=== PATIENT | male | born 1955 | race Caucasian/White ===

== ENCOUNTER → 2016-12-11 | Outpatient (CLI) | payer OTHER | END | disposition home or self-care (01) | LOC: CVU 08:58 | PROVIDERS: ATTEND Internal Medicine Cardiovascular Disease | DX: I10 Essential (primary) hypertension (principal) | CPT/HCPCS: 93306; 93975 ==

== ENCOUNTER 2020-02-11 09:43 | Day surgery (SDC) | payer OTHER ==
[2020-02-09 15:35] LABS: ALANINE AMINOTRANSFERASE 40 U/L (12-78); ALBUMIN 3.9 g/dL (3.4-5.0); ANION GAP 5 mmol/L (5-15); CALCIUM 8.8 mg/dL (8.5-10.1); CHLORIDE 107 mmol/L (98-107); CREATININE 1.43 mg/dL (0.7-1.3)
[2020-02-09 15:37] LABS: ALKALINE PHOSPHATASE 51 U/L (45-117); BILIRUBIN,TOTAL 0.5 mg/dL (0.2-1.0); TOTAL PROTEIN 7.2 g/dL (6.4-8.2)
[~2020-02-11] VITALS: Ht 177.8 cm; Wt 107.5 kg
[~2020-02-11 09:43] MED LIST: BUPIVACAINE/PF 0.5% ONE; EPINEPHRINE 1 MG/ML, 1ML ONE; LOSA100T14 PO; METO50TA82 PO
[2020-02-11] MEDS ORDERED: LACTATED RINGERS 1,000 ML IV STA (09:55)
[2020-02-11] MEDS ORDERED: CHLORHEXIDINE 15 ML UDC MM STA (09:55)
[2020-02-11] MEDS ORDERED: LIDOCAINE-MPF 1%, 2ML INFIL STA (09:55)
[2020-02-11 09:59] VITALS: BP 114/80
[2020-02-11] MEDS ORDERED: CHLORHEXIDINE 15 ML UDC ONE (10:02)
[2020-02-11] MEDS ORDERED: LACTATED RINGERS 1,000 ML IV SCH (10:30)
[2020-02-11] MEDS ORDERED: MIDAZOLAM 1 MG/ML, 2ML ONE (10:46)
[2020-02-11] MEDS ORDERED: FENTANYL PF 100 MCG/2ML ONE ×2 (10:46→12:15)
[2020-02-11] MEDS ORDERED: SUCCINYLCHOLINE 20 MG/ML, 10ML ONE (11:17)
[2020-02-11] MEDS ORDERED: DEXAMETHASONE 4 MG/ML, 1ML ONE (11:17)
[2020-02-11] MEDS ORDERED: CEFAZOLIN 1,000 MG ONE (11:17)
[2020-02-11] MEDS ORDERED: ONDANSETRON 2MG/ML, 2ML ONE (11:17)
[2020-02-11] MEDS ORDERED: PROPOFOL 10 MG/ML, 20ML ONE (11:17)
[2020-02-11] MEDS ORDERED: DEXAMETHASONE 4 MG/ML, 5ML ONE (11:53)
[2020-02-11] MEDS ORDERED: DIAZEPAM 5 MG/ML, 2ML IV PRN ×2 (12:00)
[2020-02-11] MEDS ORDERED: METOCLOPRAMIDE 5 MG/ML, 2ML IV PRN (12:00)
[2020-02-11] MEDS ORDERED: ONDANSETRON 2MG/ML, 2ML IVPush PRN (12:00)
[2020-02-11] MEDS ORDERED: ALBUTEROL SULFATE 2.5 MG/3 ML NPPB PRN (12:00)
[2020-02-11] MEDS ORDERED: PROMETHAZINE 25 MG/ML, 1ML IV PRN (12:00)
[2020-02-11] MEDS ORDERED: hydrALAzine 20 MG/ML, 1ML IV PRN (12:00)
[2020-02-11] MEDS ORDERED: LABETALOL 5MG/ML, 20ML IV PRN (12:00)
[2020-02-11] MEDS ORDERED: OXYcodone 5 MG/5 ML ORAL.SOL UDC PO PRN (12:00)
[2020-02-11] MEDS ORDERED: MEPERIDINE/PF 25MG/0.5ML IVPush PRN (12:00)
[2020-02-11] MEDS ORDERED: HYDROmorphone 1 MG/ML, 1ML INJ IV PRN (12:00)
[2020-02-11] MEDS ORDERED: KETOROLAC 30 MG/1 ML ONE (12:15)
[2020-02-11] MEDS: FENTANYL PF 100 MCG/2ML IV PRN ×3 (12:18→12:45)
[2020-02-11] MEDS: KETOROLAC 30 MG/1 ML IV PRN ×2 (12:26→12:27)
[2020-02-11] MEDS ORDERED: OXYcodone 5 MG/5 ML ORAL.SOL UDC ONE (12:34)
== END 2020-02-11 14:20 | disposition home or self-care (01) ==
LOC: OUT 09:43
PROVIDERS: ATTEND Podiatrist Foot & Ankle Surgery
DX: G57.62 Lesion of plantar nerve, left lower limb (principal); Z11.59 Encounter for screening for other viral diseases; I25.10 Atherosclerotic heart disease of native coronary artery without angina pectoris; M19.90 Unspecified osteoarthritis, unspecified site; Z79.899 Other long term (current) drug therapy; Z95.1 Presence of aortocoronary bypass graft
CPT/HCPCS: 28080; 36415; 80053; 87635; 88304; 93005; J0171; J0330; J0690; J1100; J1885; J2250; J2405; J2704; J3010; J7120

== ENCOUNTER 2020-11-08 12:07 | Outpatient (CLI) | payer OTHER ==
[~2020-11-08 12:07] MED LIST changes: -BUPIVACAINE/PF 0.5% ONE; -EPINEPHRINE 1 MG/ML, 1ML ONE; +REGADENOSON 0.4 MG/5 ML SYRINGE ONE
== END 2020-11-08 23:59 | disposition home or self-care (01) ==
LOC: CFH 12:07
PROVIDERS: ATTEND Internal Medicine Cardiovascular Disease
DX: Z01.810 Encounter for preprocedural cardiovascular examination (principal)
CPT/HCPCS: 78452; 93017; A9502; J2785